=== PATIENT | male | born 1995 | race Caucasian/White ===

== ENCOUNTER 2021-04-28 18:58 | Emergency (ER) | payer SELFPAY ==
[~2021-04-28] VITALS: Ht 170.2 cm; Wt 140.9 kg
[2021-04-28 19:06] VITALS: BP 152/78
[2021-04-28] MEDS ORDERED: IBUPROFEN 600 MG TABLET PO ONE (19:45)
== END 2021-04-28 20:49 | disposition home or self-care (01) ==
LOC: EMS 19:02
DX: S50.11XA Contusion of right forearm, initial encounter (principal); M25.532 Pain in left wrist; M25.562 Pain in left knee; V49.49XA Driver injured in collision with other motor vehicles in traffic accident, initial encounter; Y93.89 Activity, other specified; Y92.89 Other specified places as the place of occurrence of the external cause; Y99.8 Other external cause status
CPT/HCPCS: 99282; Z7502; Z7610

== ENCOUNTER 2021-07-10 17:47 | Emergency (ER) | payer MEDICAID ==
[~2021-07-10] VITALS: Ht 170.2 cm; Wt 138.2 kg
[2021-07-10] MEDS ORDERED: IBUP-1554 PO (19:29)
[2021-07-10 19:45] VITALS: BP 126/67
== END 2021-07-10 19:48 | disposition home or self-care (01) ==
LOC: EMS 17:49
DX: S29.011A Strain of muscle and tendon of front wall of thorax, initial encounter (principal); R07.89 Other chest pain; F41.9 Anxiety disorder, unspecified; V39.9XXA Occupant (driver) (passenger) of three-wheeled motor vehicle injured in unspecified traffic accident, initial encounter; Y93.89 Activity, other specified; Y92.89 Other specified places as the place of occurrence of the external cause; Y99.8 Other external cause status
CPT/HCPCS: 71045; 93005; 99283